=== PATIENT | female | born 1940 | race Native Hawaiian/Other Pacific Islander ===

== ENCOUNTER → 2016-08-30 | Outpatient (CLI) | payer MEDICARE, BC ==
[~2016-08-30] VITALS: Ht 154.9 cm; Wt 51.5 kg
[~2016-08-30] MED LIST: AMLO-511 PO; ATOR40TA28 PO; AZITHROMYCIN PO; CALCIUM CITRATE; ETHAMBUTOL PO; METF500T7 PO; [UNRECOGNIZED DRUG - OTHER] PO
[2016-08-30 13:40] VITALS: BP 157/78
== END | disposition home or self-care (01) ==
LOC: SRCNTR 13:23
PROVIDERS: ATTEND Internal Medicine Critical Care Medicine
DX: E11.9 Type 2 diabetes mellitus without complications (principal); I10 Essential (primary) hypertension; A31.8 Other mycobacterial infections; J15.9 Unspecified bacterial pneumonia; J45.990 Exercise induced bronchospasm; J47.1 Bronchiectasis with (acute) exacerbation; J84.111 Idiopathic interstitial pneumonia, not otherwise specified
CPT/HCPCS: G0463

== ENCOUNTER → 2016-11-01 | Outpatient (CLI) | payer MEDICARE, BC ==
[~2016-11-01] VITALS: Ht 154.9 cm; Wt 52.3 kg
[2016-11-01 13:39] VITALS: BP 143/66
== END | disposition home or self-care (01) ==
LOC: SRCNTR 13:34
PROVIDERS: ATTEND Internal Medicine Critical Care Medicine
DX: J84.111 Idiopathic interstitial pneumonia, not otherwise specified (principal); A31.8 Other mycobacterial infections; J15.9 Unspecified bacterial pneumonia; J45.990 Exercise induced bronchospasm; J47.1 Bronchiectasis with (acute) exacerbation; E11.9 Type 2 diabetes mellitus without complications; I10 Essential (primary) hypertension; E78.5 Hyperlipidemia, unspecified
CPT/HCPCS: G0463

== ENCOUNTER → 2017-03-23 | Outpatient (CLI) | payer MEDICARE, BC ==
[~2017-03-23] VITALS: Ht 154.9 cm; Wt 49.0 kg
[2017-03-23 14:11] VITALS: BP 153/79
== END | disposition home or self-care (01) ==
LOC: SRCNTR 13:59
PROVIDERS: ATTEND Internal Medicine Critical Care Medicine
DX: J47.1 Bronchiectasis with (acute) exacerbation (principal); A31.8 Other mycobacterial infections; J15.9 Unspecified bacterial pneumonia; J45.990 Exercise induced bronchospasm; J84.111 Idiopathic interstitial pneumonia, not otherwise specified; E11.9 Type 2 diabetes mellitus without complications; I10 Essential (primary) hypertension; Z87.891 Personal history of nicotine dependence
CPT/HCPCS: G0463

== ENCOUNTER → 2017-06-01 | Outpatient (CLI) | payer MEDICARE, BC ==
[~2017-06-01] VITALS: Ht 154.9 cm; Wt 49.4 kg
[2017-06-01 13:43] VITALS: BP 136/69
== END | disposition home or self-care (01) ==
LOC: SRCNTR 13:38
PROVIDERS: ATTEND Internal Medicine Critical Care Medicine
DX: J47.1 Bronchiectasis with (acute) exacerbation (principal); A31.8 Other mycobacterial infections; J15.9 Unspecified bacterial pneumonia; J45.990 Exercise induced bronchospasm; J84.111 Idiopathic interstitial pneumonia, not otherwise specified; E11.9 Type 2 diabetes mellitus without complications; I10 Essential (primary) hypertension; E78.5 Hyperlipidemia, unspecified
CPT/HCPCS: G0463

== ENCOUNTER → 2023-05-19 | Outpatient (CLI) | payer MEDICAID ==
[~2023-05-19] MED LIST changes: +AMLO-257 PO; -AMLO-511 PO; -AZITHROMYCIN PO; +BENZ100C68 PO; +CETI10TA58 PO; -ETHAMBUTOL PO; +LORA-1370 PO; +METF-910 PO; -METF500T7 PO; +MULT-1259 PO; -[UNRECOGNIZED DRUG - OTHER] PO
[2023-05-19 13:39] VITALS: BP 141/71; PULSE 103; RESP 18; TEMP 98.2; O2SAT 96
== END | disposition home or self-care (01) ==
LOC: SRCNTR 12:58
PROVIDERS: ATTEND Internal Medicine Pulmonary Disease
DX: I10 Essential (primary) hypertension (principal); E11.9 Type 2 diabetes mellitus without complications; E78.5 Hyperlipidemia, unspecified; J84.89 Other specified interstitial pulmonary diseases; J47.1 Bronchiectasis with (acute) exacerbation; I25.10 Atherosclerotic heart disease of native coronary artery without angina pectoris; J43.9 Emphysema, unspecified